=== PATIENT | male | born 2000 | race Caucasian/White ===

== ENCOUNTER 2020-06-01 16:58 | Emergency (ER) | payer OTHER, BC ==
[~2020-06-01] VITALS: Ht 170.2 cm; Wt 58.3 kg
[2020-06-01 19:36] VITALS: BP 134/71
[2020-06-01 19:37] LABS: CLARITY,URINE CLEAR (Clear); COLOR,URINE YELLOW (Yellow); GLUCOSE, URINE NEGATIVE (Neg); KETONES,URINE NEGATIVE (Neg); LEUKOCYTE ESTERASE ,URINE TRACE (Neg); NITRITES, URINE NEGATIVE (Neg); OCCULT BLOOD,URINE TRACE-INTACT (Neg); PH,URINE 6.5 (4.8-8.0); PROTEIN,URINE NEGATIVE (Neg); UROBILINOGEN,URINE 0.2 E.U/dL (0.2-1.0)
--- NOTE | 2020-06-01 19:38 | NUR ---
PATIENT VOIDED NO NEED FOR CATH
[2020-06-01 19:39] LABS: UA COLLECTION TYPE NON-SPECIFIED
[2020-06-01 19:44] LABS: RBC,URINE 0-2 /HPF (0-2)
[2020-06-01 19:45] LABS: BACTERIA,URINE FEW /HPF (Neg); SQUAMOUS EPITHELIAL CELL,UR NONE SEEN /LPF (FEW)
== END 2020-06-01 19:46 | disposition home or self-care (01) ==
LOC: ER 16:59
DX: N43.3 Hydrocele, unspecified (principal); N50.812 Left testicular pain; Z88.1 Allergy status to other antibiotic agents
CPT/HCPCS: 76870; 81001; 87088; 99284

== ENCOUNTER 2020-06-04 18:11 | Emergency (ER) | payer OTHER, BC ==
[~2020-06-04] VITALS: Ht 172.7 cm; Wt 63.6 kg
[2020-06-04 18:21] VITALS: BP 120/56
[2020-06-04] MEDS ORDERED: ondansetron 4mg rapidly disintigrating tab PO ONE (18:50)
[2020-06-04] MEDS ORDERED: HYDROcodone/acetaminophen 10/325mg tab PO ONE (18:50)
[2020-06-04] MEDS ORDERED: levoFLOXACIN 250mg tablet PO ONE (19:35)
[2020-06-04] MEDS ORDERED: HYDR-3964 PO (19:39)
[2020-06-04] MEDS ORDERED: LEVO500T89 PO (19:39)
[2020-06-04] MEDS ORDERED: ONDA4TAB6 PO (19:39)
== END 2020-06-04 20:13 | disposition home or self-care (01) ==
LOC: ER 18:11
DX: N50.812 Left testicular pain (principal); N50.89 Other specified disorders of the male genital organs; N50.82 Scrotal pain; N45.1 Epididymitis; N43.3 Hydrocele, unspecified; Z88.1 Allergy status to other antibiotic agents; Z79.899 Other long term (current) drug therapy
CPT/HCPCS: 76870; 93976; 99284